=== PATIENT | male | born 1960 | race African-American/Black ===

== ENCOUNTER 2017-03-18 12:00 | Emergency (ER) | payer MEDICAID ==
[~2017-03-18] VITALS: Ht 165.1 cm; Wt 68.0 kg
[2017-03-18 12:17] VITALS: BP 149/75
[2017-03-18] MEDS: IPRATROPIUM 0.02% 0.5 MG/2.5 ML NEBU INH ONE (13:48)
[2017-03-18] MEDS: ALBUTEROL 0.083% 2.5 MG/3 ML NEBU INH ONE (13:48)
[2017-03-18] MEDS: HYDROcodone/APAP 5/325 MG 1 TAB TAB PO ONE (13:55)
[2017-03-18] MEDS: methylPREDNISolone SS 125 MG/2 ML VIAL IVP ONE (14:05)
[2017-03-18 14:41] VITALS: BP 139/91
== END 2017-03-18 14:41 | disposition home or self-care (01) ==
LOC: MED 12:00
DX: J20.9 Acute bronchitis, unspecified (principal); I10 Essential (primary) hypertension
CPT/HCPCS: 71010; 94640; 96374; 99284; J2930; J7613; J7644; Q0092